=== PATIENT | female | born 1970 | race Caucasian/White ===

== ENCOUNTER 2016-12-05 20:27 | Emergency (ER) | payer MEDICAID ==
[~2016-12-05] VITALS: Ht 157.5 cm; Wt 63.5 kg
[2016-12-05 20:38] VITALS: BP_SYST 117
[2016-12-05] MEDS ORDERED: NACL 0.9% 1,000 ML IV ONE (21:10)
[2016-12-05 21:51] LABS: BASOPHILS % (AUTO) 0.7 % (0.0-2.0); EOSINOPHILS # (AUTO) 0.4 K/uL (0.0-0.4); EOSINOPHILS % (AUTO) 6.1 % (0.0-4.0); HEMATOCRIT 38.4 % (36-48); HEMOGLOBIN 12.5 g/dL (12.0-16.0); LYMPHOCYTES # (AUTO) 2.1 K/uL (1.0-5.5); LYMPHOCYTES % (AUTO) 34.4 % (20.5-51.5); MEAN CORPUSCULAR HEMOGLOBIN 28 pg (27-31); MEAN CORPUSCULAR HGB CONC 33 % (32-36); MEAN CORPUSCULAR VOLUME 85 fL (79.0-98.0); MONOCYTES # (AUTO) 0.5 K/uL (0.0-1.0); MONOCYTES % (AUTO) 7.8 % (1.7-9.3); NEUTROPHILS # (AUTO) 3.1 K/uL (1.8-7.7); PLATELET COUNT (AUTO) 173 K/uL (130-430); WHITE BLOOD COUNT (AUTO) 6.1 K/uL (4.8-10.8)
[2016-12-05 22:01] LABS: BILIRUBIN,URINE NEGATIVE (NEGATIVE); BLOOD, URINE NEGATIVE (NEGATIVE); CLARITY/URINE CLEAR (CLEAR); COLOR,URINE YELLOW (YELLOW); GLUCOSE,URINE NEGATIVE (NEGATIVE); KETONES,URINE NEGATIVE (NEGATIVE); LEUKOCYTE ESTERASE ,URINE NEGATIVE (NEGATIVE); NITRITE, URINE NEGATIVE (NEGATIVE); PROTEIN URINE NEGATIVE (NEGATIVE); UROBILINOGEN,URINE 0.2 (0.2-1.0)
[2016-12-05 22:11] LABS: CALCIUM 8.9 mg/dL (8.4-11.0); CREATININE 0.93 mg/dL (0.55-1.30); POTASSIUM 3.7 mmol/L (3.5-5.1)
[2016-12-05 22:17] LABS: ALBUMIN 3.7 g/dL (3.4-4.8); TOTAL BILIRUBIN 0.2 mg/dL (0.0-1.0)
[2016-12-05] MEDS ORDERED: KETOROLAC TROMETHAMINE 30 MG VIAL IVP ONE (22:45)
[2016-12-05 22:59] VITALS: BP_SYST 120
== END 2016-12-05 22:59 | disposition home or self-care (01) ==
LOC: SED 20:27
DX: R10.11 Right upper quadrant pain (principal); Z88.0 Allergy status to penicillin; Z88.1 Allergy status to other antibiotic agents
CPT/HCPCS: 36415; 76700; 80053; 81003; 81025; 83690; 85025; 96361; 96374; 99285; J1885; J7030

== ENCOUNTER 2017-10-22 23:10 | Emergency (ER) | payer MEDICAID ==
[~2017-10-22] VITALS: Ht 157.5 cm; Wt 63.5 kg
[2017-10-22 23:50] VITALS: BP_SYST 122
[2017-10-23] MEDS ORDERED: PROCHLORPERAZINE MALEATE 10 MG TABLET PO ONE (02:00)
[2017-10-23] MEDS ORDERED: METOCLOPRAMIDE HCL 10 MG TABLET PO ONE (02:30)
[2017-10-23 02:34] VITALS: BP_SYST 122
== END 2017-10-23 02:34 | disposition home or self-care (01) ==
LOC: SED 23:10
DX: G43.909 Migraine, unspecified, not intractable, without status migrainosus (principal); Z88.0 Allergy status to penicillin; Z88.1 Allergy status to other antibiotic agents; Z98.890 Other specified postprocedural states
CPT/HCPCS: 99283; J8597; Q0164

== ENCOUNTER 2018-11-29 17:49 | Emergency (ER) | payer MEDICAID ==
[~2018-11-29] VITALS: Ht 157.5 cm; Wt 63.5 kg
[2018-11-29 17:58] VITALS: BP_SYST 124
[2018-11-29 22:08] VITALS: BP_SYST 122
== END 2018-11-29 22:08 | disposition home or self-care (01) ==
LOC: SED 17:49
DX: N61.0 Mastitis without abscess (principal); G43.909 Migraine, unspecified, not intractable, without status migrainosus; Z88.0 Allergy status to penicillin; Z88.1 Allergy status to other antibiotic agents
CPT/HCPCS: 76641; 99284

== ENCOUNTER 2019-05-13 14:54 | Emergency (ER) | payer MEDICAID ==
[~2019-05-13] VITALS: Ht 157.5 cm; Wt 64.0 kg
[2019-05-13 15:42] VITALS: BP_SYST 116
[2019-05-13] MEDS ORDERED: DEXAMETHASONE SOD PHOSPHATE 10 MG/ML VIAL IM ONE (17:00)
[2019-05-13] MEDS ORDERED: KETOROLAC TROMETHAMINE 60 MG/2 ML VIAL IM ONE (17:00)
[2019-05-13 17:46] VITALS: BP_SYST 116
== END 2019-05-13 17:46 | disposition home or self-care (01) ==
LOC: SED 14:54
DX: M54.5 Low back pain (principal); Z88.0 Allergy status to penicillin; Z88.1 Allergy status to other antibiotic agents
CPT/HCPCS: 81002; 81025; 96372; 99283; J1100; J1885

== ENCOUNTER 2019-05-18 13:46 | Emergency (ER) | payer MEDICAID ==
[~2019-05-18] VITALS: Ht 157.5 cm; Wt 64.0 kg
[2019-05-18 13:46] VITALS: BP_SYST 132
--- NOTE | 2019-05-18 13:46 | NUR ---
ASSISTED OUT OF CAR TO WHEELCHAIR, PLACED IN BED #8 AND TRIAGED. REPORT GIVEN TO YINKA
--- NOTE | 2019-05-18 13:55 | NUR ---
pt arrives w/ chronic back pain 04/17. Pt is currently wearing a back brace, however, states the brace is not helping to improve her pain. No other c/o at the moment.
--- NOTE | 2019-05-18 14:03 | NUR ---
ER at bedside examining patient.
[2019-05-18] MEDS ORDERED: KETOROLAC TROMETHAMINE 60 MG/2 ML VIAL IM ONE (15:00)
[2019-05-18] MEDS ORDERED: MORPHINE 4 MG/ML INJ. SYRINGE IM ONE (15:00)
--- NOTE | 2019-05-18 15:27 | NUR ---
medicated the pt w/ Morphine and Toradol per MD order. Will reassess
--- NOTE | 2019-05-18 15:45 | NUR ---
pt reports feeling better. Current back pain is 3/10.
--- NOTE | 2019-05-18 16:00 | NUR ---
Maria G farley in ED - 05/18/19 at 1731 by SDNJUSTIN NOLAN Forrest at bedside examining patient.
[2019-05-18 16:05] VITALS: BP_SYST 132
--- NOTE | 2019-05-18 16:05 | NUR ---
Patient given written and verbal discharge instructions and verbalizes understanding. ER MD discussed with patient the results and treatment provided. Patient in stable condition. ID arm band removed. Rx of Naprosyn 500mg given. Patient educated on pain management and to follow up with PMD. Pain Scale 3/10.Opportunity for questions provided and answered. Medication side effect fact sheet provided.
== END 2019-05-18 16:05 | disposition home or self-care (01) ==
LOC: SED 13:46
DX: S33.5XXA Sprain of ligaments of lumbar spine, initial encounter (principal); Z88.0 Allergy status to penicillin; Z88.1 Allergy status to other antibiotic agents; X50.0XXA Overexertion from strenuous movement or load, initial encounter; Y93.89 Activity, other specified; Y92.89 Other specified places as the place of occurrence of the external cause; Y99.8 Other external cause status
CPT/HCPCS: 96372; 99283; J1885; J2270